=== PATIENT | female | born 1940 | race Caucasian/White ===

== ENCOUNTER → 2024-06-18 12:24 | Outpatient (REF) | payer MEDICARE, BC, SELFPAY | LOC: RAD 12:24 | PROVIDERS: ATTENDING PHYSICIAN Specialist; FAMILY PHYSICIAN Family Medicine | DX: M19.011 Primary osteoarthritis, right shoulder (principal) | CPT/HCPCS: 73200 ==

== ENCOUNTER 2024-07-23 06:25 | Day surgery (SDC) | payer MEDICARE, BC, SELFPAY ==
[2024-06-24 13:28] VITALS: BMI 22.4
[2024-06-24 14:10] LABS: Hematocrit 38.5 % (37.0-47.0); Hemoglobin 12.7 g/dL (12.0-16.0); Mean Corpuscular Hgb 30.8 pg (27.0-31.0); Mean Corpuscular Volume 93.2 fL (81.0-99.0); Mean Platelet Volume 10.2 fL (7.4-10.4); Platelet Count 149 10^3/uL (130-400); Red Blood Cell Count 4.13 10^6/uL (4.20-5.40); White Blood Cell Count 7.4 10^3/uL (4.8-10.8)
[2024-06-24 14:22] LABS: ALT (SGPT) 16 U/L (0-35); AST (SGOT) 28 U/L (14-36); Albumin 4.2 g/dl (3.5-5.0); Alkaline Phosphatase 54 U/L (38-126); Blood Urea Nitrogen 20 mg/dl (7-17); Calcium 9.5 mg/dl (8.4-10.2); Carbon Dioxide 27 mmol/L (22-30); Chloride 100 mmol/L (98-107); Estimated Creatinine Clearance 32 ml/min; Glucose 92 mg/dl (70-99); Potassium 5.3 mmol/L (3.5-5.1); Sodium 133 mmol/L (135-145); Total Bilirubin 0.5 mg/dl (0.2-1.3); Total Protein 6.4 g/dl (6.3-8.2); eGFR 54.87
[2024-06-25 10:12] LABS: Glycohemoglobin (HgbA1c) 5.3 % (4.0-5.6)
[2024-07-23] VITALS (9 sets, daily range): BP systolic 121–166; BP diastolic 43–77; BMI 21.8
[2024-07-23] MEDS: MOBIC 15 MG PO (09:37)
[2024-07-23] MEDS: TYLENOL 1000 MG PO (09:38)
[2024-07-23] MEDS: NORMOSOL-R/PLASMALYTE-A 1000 IV (09:38)
[2024-07-23] MEDS: ANCEF 5 IV (15:35)
== END 2024-07-23 15:45 | disposition home or self-care (01) ==
LOC: SDS 06:25
PROVIDERS: ATTENDING PHYSICIAN Specialist; OTHER PHYSICIAN Internal Medicine Cardiovascular Disease
DX: M19.011 Primary osteoarthritis, right shoulder (principal)
CPT/HCPCS: 23472; 36415; 73020; 80053; 83036; 85027; 87070; C1713; C1776